=== PATIENT | female | born 2005 | race Caucasian/White ===

== ENCOUNTER 2025-03-04 12:47 | Emergency (ER) | payer BC ==
[2025-03-04] MEDS: Take Home: Cephalexin 500 MG Cap, 6 Cap Pack PO ONE (13:31)
== END 2025-03-04 13:40 | disposition home or self-care (01) ==
LOC: CC.ED 12:47
DX: L03.031 Cellulitis of right toe (principal); Z79.899 Other long term (current) drug therapy
CPT/HCPCS: 99283; A9270